=== PATIENT | female | born 1980 | race Caucasian/White ===

== ENCOUNTER 2022-01-22 19:15 | Emergency (ER) | payer BC, OTHER ==
[2022-01-22 19:47] VITALS: BP 155/100; PULSE 92; RESP 18; TEMP 99.9; BMI 43.5
[2022-01-22] MEDS ORDERED: DIPHTH,PERTUSS(ACELL),TET 0.5 ML DISP.SYRIN IM ONE ×2 (20:13→20:27)
[2022-01-22] MEDS ORDERED: AMOX TR/POT CLAV 875MG/125MG TABLETS (FP) PO ONE (20:14)
[2022-01-22] MEDS ORDERED: AMOX TR/POT CLAV 875MG/125MG TABLETS (FP) ONE (20:26)
== END 2022-01-22 20:45 | disposition home or self-care (01) ==
LOC: FER 19:15
PROC: 3E0234Z Introduction of Serum, Toxoid and Vaccine into Muscle, Percutaneous Approach (ICD-10-PCS; principal; 2022-01-22)
DX: S61.452A Open bite of left hand, initial encounter (principal); W54.0XXA Bitten by dog, initial encounter
CPT/HCPCS: 90715; 99284-25

== ENCOUNTER 2022-05-09 13:07 | Emergency (ER) | payer BC ==
[2022-05-09 13:17] VITALS: BP 120/82; PULSE 96; RESP 18; TEMP 99; BMI 38.9
== END 2022-05-09 14:00 | disposition home or self-care (01) ==
LOC: FER 13:07
DX: M54.89 Other dorsalgia (principal)
CPT/HCPCS: 0241U-QW; 99283-25

== ENCOUNTER 2024-01-18 13:39 | Emergency (ER) | payer BC ==
[2024-01-18 13:48] VITALS: BP 120/74; PULSE 77; RESP 16; TEMP 98.8; BMI 35.6
[2024-01-18 14:22] LABS: HEMATOCRIT 38.4 % (32.4-45.2); HEMOGLOBIN 12.3 G/dL (10.7-15.3); MCH 25.5 pg (25.7-33.7); MCHC 32.1 g/dl (32.0-36.0); MEAN CELL VOLUME 79.4 fl (80-96); MEAN PLT VOLUME 8.8 fl (7.5-11.1); PLATELET COUNT 246.4 10^3/uL (134-434); RBC 4.84 10^6/uL (3.60-5.2); RDW 17.2 % (11.6-15.6); WHITE BLOOD COUNT 7.6 10^3/uL (4.0-10.8)
[2024-01-18 14:26] LABS: PLATELET ESTIMATE ADEQUATE
[2024-01-18] MEDS ORDERED: ACETAMINOPHEN 325 MG TABLET (FP) ONE (14:29)
[2024-01-18] MEDS: ACETAMINOPHEN 325 MG TABLET (FP) PO ONE (14:31)
[2024-01-18 14:32] LABS: ALBUMIN 4.4 g/dl (3.4-5.0); ALK PHOS 46 U/L (45-117); ANION GAP 7 mmol/L (4-13); BILIRUBIN,TOTAL 0.5 mg/dl (0.2-1); CALCIUM 9.4 mg/dl (8.5-10.1); CHLORIDE 107 mmol/L (98-107); CO2 27 mmol/L (21-32); CREATININE 0.8 mg/dl (0.6-1.3); GLUCOSE,RANDOM 93 mg/dl (74-106); POTASSIUM 4.1 mmol/L (3.5-5.1); SGOT/AST 8 U/L (15-37); SGPT/ALT 8 U/L (7-52); SODIUM 141 mmol/L (136-145); TOT PROT 7.5 g/dl (6.4-8.2)
== END 2024-01-18 15:05 | disposition home or self-care (01) ==
LOC: FER 13:39
DX: R07.89 Other chest pain (principal)
CPT/HCPCS: 36415; 80053; 84484; 85025; 93005; 99284-25

== ENCOUNTER 2024-02-15 11:55 | Emergency (ER) | payer OTHER, BC ==
[2024-02-15 12:09] VITALS: BP 119/61; PULSE 75; RESP 16; TEMP 98.1; BMI 34.9
[2024-02-15] MEDS: CYCLOBENZAPRINE HCL 10 MG TABLET (FP) PO ONE (12:32)
[2024-02-15] MEDS: IBUPROFEN 400 MG TABLET (FP) PO ONE (12:32)
== END 2024-02-15 13:07 | disposition home or self-care (01) ==
LOC: FER 11:55
DX: M54.2 Cervicalgia (principal); M54.6 Pain in thoracic spine; R11.0 Nausea; R51.9 Headache, unspecified; V49.40XA Driver injured in collision with unspecified motor vehicles in traffic accident, initial encounter; Y92.410 Unspecified street and highway as the place of occurrence of the external cause
CPT/HCPCS: 99283-25